=== PATIENT | female | born 1935 | race Caucasian/White ===

== ENCOUNTER 2016-12-12 15:31 | Emergency (ER) | payer OTHER ==
--- NOTE | 2016-12-12 17:33 | EDPHY ---
H & P Time Seen by Provider: 12/12/16 17:30 HPI/ROS: Chief complaint. Dizzy, headache HPI. 80-year-old female with 6 week history of intermittent feeling faint. She occasionally feels like she might pass out. She can have the symptoms when she sitting or walking. Her worst episode was 1 and half weeks ago. He also is somewhat was at home. She felt she was having problems with her eyes but she has seen Ophthalmology who diagnosed disc cataracts she is depressed over the of her . Denies fever, cough, chest pain, shortness of breath , abdominal pain. She has been tried on 2 antidepressants recently for her depression ROS Constitutional. no fever/chills, no weakness Eyes. no problems with vision ENT. no sore throat, no nasal drainage Cardiovascular. no chest pain Respiratory. no shortness of breath, no cough Abdominal. no abdominal pain, no nausea/vomiting, no diarrhea . no problems urinating MS. no calf pain/swelling, no neck/back pain, no joint pain Skin. no rash Lymph. no swollen glands Neuro. Near syncope Past Medical/Surgical History: Breast cancer, appendectomy, dyslipidemia, depression Social History: , nonsmoker, no alcohol Smoking Status: Former smoker Physical Exam: General Appearance: Alert pleasant well-developed female mild distress vital signs are stable Eyes: Pupils equal and round no pallor or injection. ENT, Mouth: Mucous membranes are moist. Respiratory: There are no retractions, lungs are clear to auscultation. Cardiovascular: Regular rate and rhythm. Gastrointestinal: Abdomen is soft and nontender, no masses, bowel sounds normal. Neurological: Awake and alert, sensory and motor exams grossly normal. Speech is normal. Cranial nerves are normal. There is no pronator drift. Finger to nose is intact bilaterally. [id number] is intact Skin: Warm and dry, no rashes. Musculoskeletal: Neck is supple nontender. Extremities symmetrical, full range of motion. Psychiatric: Patient is oriented X 3, there is no agitation. Constitutional: Initial Vital Signs Temperature (C) 36.7 C 12/12/16 16:42 Heart Rate 69 12/12/16 16:42 Respiratory Rate 16 12/12/16 16:42 Blood Pressure 142/80 H 12/12/16 16:42 O2 Sat (%) 97 12/12/16 16:42 O2 Delivery Mode Room Air Allergies/Adverse Reactions: Sulfa (Sulfonamide Antibiotics) Allergy (Mild, Verified 12/12/16 16:45) Rash Home Medications: Medication Instructions Recorded NK [No Known Home Meds] 12/12/16 Medical Decision Making - Diagnostics EKG Interpretation: EKG interpreted by me shows normal sinus rhythm with normal interval and axis. QRS shows a right bundle branch block. There is no significant ST elevation or depression. There is no arrhythmia. The rate is 59 Procedures: IV normal saline, monitor ED Course/Re-evaluation: Re-evaluation 7:05 p.m.--patient feels well and has no complaints. Patient and I discussed EKG and laboratory evaluation. We discussed treatment plan including criteria for return importance of follow-up and further evaluation. She expresses understanding and agreement Differential Diagnosis: This could be depression anxiety. I considered electrolyte abnormality, acute coronary syndrome. No evidence for CVA - Data Points Laboratory Results: Laboratory Results 12/12/16 18:00 12/12/16 18:00 12/12/16 12/12/16 18:00 18:00 WBC 7.52 10^3/uL 10^3/uL (3.80-9.50) RBC 4.14 10^6/uL L 10^6/uL (4.18-5.33) Hgb 13.0 g/dL g/dL (12.6-16.3) Hct 38.9 % % (38.0-47.0) MCV 94.0 fL fL (81.5-99.8) MCH 31.4 pg pg (27.9-34.1) MCHC 33.4 g/dL g/dL (32.4-36.7) RDW 12.6 % % (11.5-15.2) Plt Count 256 10^3/uL 10^3/uL (150-400) MPV 10.3 fL fL (8.7-11.7) Neut % (Auto) 49.7 % % (39.3-74.2) Lymph % (Auto) 34.6 % % (15.0-45.0) [place] % (Auto) 12.2 % % (4.5-13.0) Eos % (Auto) 2.3 % % (0.6-7.6) Baso % (Auto) 1.1 % % (0.3-1.7) Nucleat RBC Rel Count 0.0 % % (0.0-0.2) Absolute Neuts (auto) 3.74 10^3/uL 10^3/uL (1.70-6.50) Absolute Lymphs (auto) 2.60 10^3/uL 10^3/uL (1.00-3.00) Absolute Monos (auto) 0.92 10^3/uL H 10^3/uL (0.30-0.80) Absolute Eos (auto) 0.17 10^3/uL 10^3/uL (0.03-0.40) Absolute Basos (auto) 0.08 10^3/uL 10^3/uL (0.02-0.10) Absolute Nucleated RBC 0.00 10^3/uL 10^3/uL (0-0.01) Immature Gran % 0.1 % % (0.0-1.1) Immature Gran # 0.01 10^3/uL 10^3/uL (0.00-0.10) Sodium 140 mEq/L mEq/L (134-144) Potassium 4.3 mEq/L mEq/L (3.5-5.2) Chloride 105 mEq/L mEq/L (97-110) Carbon Dioxide 23 mEq/l mEq/l (22-31) Anion Gap 12 mEq/L mEq/L (8-16) BUN 22 mg/dL mg/dL (7-23) Creatinine 0.8 mg/dL mg/dL (0.6-1.0) Estimated GFR > 60 Glucose 94 mg/dL mg/dL (70-100) Calcium 10.1 mg/dL mg/dL (8.5-10.4) Troponin I < 0.012 ng/mL ng/mL (0-0.034) Departure - Departure Disposition: Home, Routine, Self-Care Clinical Impression: Near syncope Condition: Good Instructions: Near Syncope (ED) Additional Instructions: Drink plenty of fluids and stay hydrated. Caution on stairs in use hand rail. Return for fever, chest discomfort, trouble breathing. Re-evaluation by Dr. Guillermo in the next 2-3 days Referrals: Pilar Gifford MD [Primary Care Provider] - 2-3 days without fail
--- NOTE | 2016-12-12 17:56 | CPEKG ---
Heart Rate: 59 RR Interval: 1017 P-R Interval: 160 QRSD Interval: 142 QT Interval: 496 QTC Interval: 492 P [place]: 58 QRS [place]: 62 T Wave [place]: 21 EKG Severity - ABNORMAL ECG - EKG Impression: SINUS RHYTHM EKG Impression: RIGHT BUNDLE BRANCH BLOCK Electronically Signed By: Tejas Velazquez 12-Dec-2016 21:09:51
[2016-12-12 18:08] LABS: % IMMATURE GRANULYOCYTES 0.1 % (0.0-1.1); ABSOLUTE IMMATURE GRANULOCYTES 0.01 10^3/uL (0.00-0.10); ADD DIFF? NO; ADD MORPH? NO; ADD SCAN? NO; ATYPICAL LYMPHOCYTE FLAG 20 (0-99); FRAGMENT RBC FLAG 0 (0-99); HEMATOCRIT 38.9 % (38.0-47.0); LEFT SHIFT FLG 0 (0-99); LIPEMIA HEMOLYSIS FLAG 80 (0-99); MEAN CELL HEMOGLOBIN 31.4 pg (27.9-34.1); MEAN CELL HEMOGLOBIN CONCENTR. 33.4 g/dL (32.4-36.7); MEAN PLATELET VOLUME 10.3 fL (8.7-11.7); PLATELET CLUMPS FLAG 0 (0-99); PLATELET COUNT 256 10^3/uL (150-400); RED BLOOD CELL COUNT 4.14 10^6/uL (4.18-5.33); RED CELL DISTRIBUTION WIDTH 12.6 % (11.5-15.2)
[2016-12-12 18:23] LABS: ANION GAP 12 mEq/L (8-16); CALCIUM 10.1 mg/dL (8.5-10.4); CARBON DIOXIDE 23 mEq/l (22-31); CHLORIDE 105 mEq/L (97-110); CREATININE 0.8 mg/dL (0.6-1.0); GLOMERULAR FILTRATION RATE > 60; GLUCOSE 94 mg/dL (70-100); POTASSIUM 4.3 mEq/L (3.5-5.2); SODIUM 140 mEq/L (134-144)
[2016-12-12 18:34] LABS: TROPONIN I < 0.012 ng/mL (0-0.034)
[2016-12-12 19:22] VITALS: BP 147/67; PULSE 60; RESP 15; TEMP 98.2; O2SAT 95
== END 2016-12-12 19:21 | disposition home or self-care (01) ==
DX: R55 Syncope and collapse (principal); Z85.3 Personal history of malignant neoplasm of breast; Z87.891 Personal history of nicotine dependence

== ENCOUNTER → 2016-12-29 | Outpatient (CLI) | payer OTHER ==
[~2016-12-29] MED LIST: GADOBUTROL 10 ML VIAL IVP ONE
== END ==
LOC: FIMAGING 10:35
PROVIDERS: ATTEND Internal Medicine
DX: H53.419 Scotoma involving central area, unspecified eye (principal); R51 Headache; R55 Syncope and collapse
CPT/HCPCS: 70553; A9585

== ENCOUNTER → 2017-01-21 | Outpatient (CLI) | payer OTHER | LOC: BHFA 09:15 | PROVIDERS: ATTEND Internal Medicine Cardiovascular Disease | DX: I35.1 Nonrheumatic aortic (valve) insufficiency (principal); I25.10 Atherosclerotic heart disease of native coronary artery without angina pectoris ==

== ENCOUNTER → 2017-05-15 | Outpatient (CLI) | payer OTHER | LOC: FIMAGING 08:49 | PROVIDERS: ATTEND Internal Medicine | DX: Z12.31 Encounter for screening mammogram for malignant neoplasm of breast (principal); Z85.3 Personal history of malignant neoplasm of breast | CPT/HCPCS: G0202 ==

== ENCOUNTER → 2018-02-10 | Outpatient (CLI) | payer OTHER | LOC: BHFA 10:00 | PROVIDERS: ATTEND Internal Medicine Cardiovascular Disease | DX: I25.10 Atherosclerotic heart disease of native coronary artery without angina pectoris (principal) ==

== ENCOUNTER → 2018-07-17 | Outpatient (CLI) | payer OTHER | LOC: FIMAGING 13:13 ==

== ENCOUNTER → 2018-11-16 | Outpatient (CLI) | payer OTHER | LOC: FIMAGING 15:57 ==